=== PATIENT | female | born 1960 | race Caucasian/White ===

== ENCOUNTER 2021-02-07 11:14 | Observation (INO) ==
[2021-02-07] MEDS ORDERED: MoRPHine SULFATE 4 MG/ML 1 ML CARP\\VIAL IV STA ×2 (11:43→16:07)
[2021-02-07] MEDS ORDERED: ONDANSETRON INJ 2 MG/ML 2 ML VIAL IV STA (11:43)
--- NOTE | 2021-02-07 12:01 | Emergency Department Note ---
History of Present Illness General Chief complaint: Leg Injury/Pain Stated complaint: L LEG PAIN IN GROIN Time Seen by Provider: 02/07/21 11:36 History of Present Illness Maximum Pain Intensity: 7 This is a 60-year-old female that presents to the emergency department via private vehicle with complaints of "flank pain and groin". The patient notes that about 1 week ago she began with atraumatic left hip/left groin pain. She notes that the pain is also in the left lower quadrant and radiates down her left leg. No back pain. She had outpatient x-rays and notes that she has not been informed upon the results as of yet. She denies any known trauma or injury. She does feel some nausea and feels as though she has to vomit but has not. The patient in regard to today's visit denies any other pertinent past medical history, surgeries or allergies. Patient denies any lower extremity weakness, bowel or bladder incontinence, numbness or tingling genital region. No fevers, chills, chest pain or shortness of breath. Home Medications Medication Instructions Recorded Confirmed Type acetaminophen [Tylenol Extra 500 mg PO Q6H PRN 02/07/21 02/07/21 History Strength] albuterol sulfate [Ventolin HFA] 2 puff INHALATION QID PRN 02/07/21 02/07/21 History aspirin 81 mg PO Q2D 02/07/21 02/07/21 History buspirone 15 mg PO BID 02/07/21 02/07/21 History hydroxyzine HCl 10 mg PO HS 02/07/21 02/07/21 History montelukast 10 mg PO DAILY@1400 02/07/21 02/07/21 History pantoprazole 40 mg PO DAILY@1400 02/07/21 02/07/21 History prednisone 20 mg PO BID 02/07/21 02/07/21 History trazodone 50 mg PO HS PRN 02/07/21 02/07/21 History valsartan-hydrochlorothiazide 1 tab PO DAILY@1400 02/07/21 02/07/21 History Allergies Allergy/AdvReac Type Severity Reaction Status Date / Time No Known Allergies Allergy Unverified 02/07/21 12:18 Past Med/Surg History Medical History Allergic rhinitis Esophageal reflux HTN (hypertension) Hyperlipidemia Sinusitis Smoker Surgical History S/P colonoscopy Family History Father Coronary heart disease Social History Smoking Status: Current every day smoker Feels Safe at Home: Yes Review of Systems A total of 10 systems reviewed and were otherwise negative Physical Exam Vital Signs Vital Signs - 24 hr 02/07/21 11:22 02/07/21 12:29 02/07/21 14:00 Temperature 36.5 C Temperature Source Temporal Artery Scan Pulse Rate 96 H Pulse Rate [Right Finger] 84 65 Pulse Rhythm Regular Pulse Rhythm [Right Finger] Regular Regular Pulse Strength Normal Pulse Strength [Right Finger] Normal Normal Respiratory Rate 18 16 18 Respiratory Effort / Characteristics Non-Labored Spontaneous Non-Labored Spontaneous Non-Labored Spontaneous Respiratory Depth Normal Normal Normal Respiratory Pattern Regular Blood Pressure 131/71 Blood Pressure [Left Arm] 147/100 H 127/59 L Blood Pressure Mean 91 Blood Pressure Mean [Left Arm] 115 81 Blood Pressure Position Sitting Blood Pressure Position [Left Arm] Lying Pulse Oximetry 98 98 95 Oxygen Delivery Method Room Air Room Air Room Air Sepsis Recent Fever Within 48 Hours No Sepsis New/Unexplained Change in Mental Status N/A Sepsis Action Taken by Nursing No Action Required VITAL SIGNS - Vital signs and nursing notes were reviewed. Stable and afebrile. GENERAL -60-year-old female appearing her stated age who is in no acute distress. Communicates well with provider and answers questions appropriately. SKIN - Without rashes. No meningeal or petechial rash. HEAD - NC/AT. EYES - PERRL with EOMI bilaterally. Sclera anicteric. EARS - No deformities of external structures noted on gross examination bilaterally. NOSE - Midline and without cyanosis. No epistaxis or purulent drainage noted. MOUTH/OROPHARYNX - Without perioral cyanosis. NECK - Neck with FROM. No nuchal rigidity. LUNGS - Chest wall symmetric without accessory muscle use, intercostals retractions, or central cyanosis. Normal vesicular breath sounds CTA B/L. No wheezes, rales, or rhonchi appreciated. CARDIAC - RRR with S1/S2. No murmur, rubs, or gallops appreciated. ABDOMEN - Abdominal contour normal without pulsations or visible masses. BS normoactive all four quadrants. No tenderness, palpable masses, hepatosplenomegaly, or ascites noted. EXTREMITIES - No clubbing or peripheral cyanosis. No bony tenderness. No step- off or deformity. No neurovascular deficit. +5/5 strength noted in UE/LE bilaterally. NEUROLOGIC - Cranial nerves II through XII grossly intact. Sensory intact to light touch throughout. PSYCH - A&Ox3 and cooperates fully with examiner. Pt is very pleasant and interacts well with examiner. Course Administered Medications Discontinued Medications Sodium Chloride (Nss 1000ml) 1,000 mls @ 999 mls/hr IV .Q1H1M SHELBY Stop: 02/07/21 14:45 Last Admin: 02/07/21 14:03 Dose: 999 mls/hr Documented by: [id number] Ioversol (Ioversol 100ml) 94 ml IV ONCE ONE Stop: 02/07/21 13:25 Last Admin: 02/07/21 13:25 Dose: 94 ml Documented by: [id number] Morphine Sulfate (Morphine Sulfate 4 Mg/Ml 1 Ml Carp\\Vial) 4 mg IV NOW STA Stop: 02/07/21 11:44 Last Admin: 02/07/21 12:21 Dose: 4 mg Documented by: [id number] Morphine Sulfate (Morphine Sulfate 4 Mg/Ml 1 Ml Carp\\Vial) 4 mg IV NOW STA Stop: 02/07/21 16:08 Last Admin: 02/07/21 16:14 Dose: 4 mg Documented by: [id number] Ondansetron HCl (Ondansetron Inj 2 Mg/Ml 2 Ml Vial) 4 mg IV NOW STA Stop: 02/07/21 11:44 Last Admin: 02/07/21 12:20 Dose: 4 mg Documented by: [id number] Medical Decision Making Laboratory Data Result diagrams: 02/07/21 12:09 02/07/21 12:09 Lab Results 02/07/21 02/07/21 02/07/21 Range/Units 12:09 12:09 14:10 WBC 13.96 H (4.8-10.8) K/uL RBC 4.54 (4.2-5.4) M/uL Hgb 15.0 (12.0-16.0) g/dL Hct 41.2 (37-47) % MCV 90.7 (80-100) fL MCH 33.0 (25-34) pg MCHC 36.4 H (32-36) g/dL RDW Std Deviation 40.8 (36.4-46.3) fL RDW Coeff of Tita 12.3 (11.5-14.5) % Plt Count 419 H (130-400) K/uL MPV 9.9 (7.4-10.4) fL Immature Gran % (Auto) 0.2 % Neut % (Auto) 86.8 % Lymph % (Auto) 10.1 % [place] % (Auto) 2.7 % Eos % (Auto) 0.1 % Baso % (Auto) 0.1 % Neut # (Auto) 12.12 H (1.4-6.5) K/uL Lymph # (Auto) 1.41 (1.2-3.4) K/uL [place] # (Auto) 0.38 (0.11-0.59) K/uL Eos # (Auto) 0.01 (0-0.5) K/uL Baso # (Auto) 0.01 (0-0.2) K/uL Immature Gran # (Auto) 0.03 H (0.00-0.02) K/uL Sodium 119 L* (136-145) mmol/L Potassium 3.4 L (3.5-5.1) mmol/L Chloride 85 L (98-107) mmol/L Carbon Dioxide 26 (21-32) mmol/L Anion Gap 8.0 (3-11) BUN 14 (7-18) mg/dl Creatinine 0.81 (0.6-1.2) mg/dl Est Cr Clr Drug Dosing 68.6 ml/min Est GFR ( Amer) 90.2 Est GFR (Non-Af Amer) 77.8 BUN/Creatinine Ratio 17.4 (10-20) Glucose 296 H (70-99) mg/dl Calcium 8.8 (8.5-10.1) mg/dl Magnesium 2.2 (1.8-2.4) mg/dl Total Bilirubin 0.5 (0.2-1) mg/dl AST 9 L (15-37) U/L ALT 25 (12-78) U/L Alkaline Phosphatase 79 (45-117) U/L Total Protein 8.3 H (6.4-8.2) gm/dl Albumin 3.7 (3.4-5.0) gm/dl Globulin 4.6 H (2.5-4.0) gm/dl Albumin/Globulin Ratio 0.8 L (0.9-2) Lipase 122 (73-393) U/L COVID-19 Eval [facility] SARS-CoV-2, RNA, NAAT (NEGATIVE) 02/07/21 Range/Units 14:10 WBC (4.8-10.8) K/uL RBC (4.2-5.4) M/uL Hgb (12.0-16.0) g/dL Hct (37-47) % MCV (80-100) fL MCH (25-34) pg MCHC (32-36) g/dL RDW Std Deviation (36.4-46.3) fL RDW Coeff of Tita (11.5-14.5) % Plt Count (130-400) K/uL MPV (7.4-10.4) fL Immature Gran % (Auto) % Neut % (Auto) % Lymph % (Auto) % [place] % (Auto) % Eos % (Auto) % Baso % (Auto) % Neut # (Auto) (1.4-6.5) K/uL Lymph # (Auto) (1.2-3.4) K/uL [place] # (Auto) (0.11-0.59) K/uL Eos # (Auto) (0-0.5) K/uL Baso # (Auto) (0-0.2) K/uL Immature Gran # (Auto) (0.00-0.02) K/uL Sodium (136-145) mmol/L Potassium (3.5-5.1) mmol/L Chloride (98-107) mmol/L Carbon Dioxide (21-32) mmol/L Anion Gap (3-11) BUN (7-18) mg/dl Creatinine (0.6-1.2) mg/dl Est Cr Clr Drug Dosing ml/min Est GFR ( Amer) Est GFR (Non-Af Amer) BUN/Creatinine Ratio (10-20) Glucose (70-99) mg/dl Calcium (8.5-10.1) mg/dl Magnesium (1.8-2.4) mg/dl Total Bilirubin (0.2-1) mg/dl AST (15-37) U/L ALT (12-78) U/L Alkaline Phosphatase (45-117) U/L Total Protein (6.4-8.2) gm/dl Albumin (3.4-5.0) gm/dl Globulin (2.5-4.0) gm/dl Albumin/Globulin Ratio (0.9-2) Lipase (73-393) U/L COVID-19 Eval Order SARS-CoV-2, RNA, NAAT NEGATIVE (NEGATIVE) Imaging Data Radiologist's Impression: CT abd pelvis IV con only CLINICAL HISTORY: Left-sided abdominal pain radiating to the left leg. COMPARISON STUDY: None. TECHNIQUE: The patient was scanned in a dynamic helical fashion during intravenous administration of 94 cc of Optiray 320 A dose lowering technique w as utilized adhering to the principles of ALARA. CT DOSE: 560.31 mGy.cm FINDINGS: Lower chest: There are mild dependent atelectatic changes Liver: The contrast-enhanced liver is normal in size, contour, and attenuation. There is no intrahepatic biliary ductal dilatation. The hepatic veins and portal veins are patent. Gallbladder: Unremarkable. Spleen: Normal in size and attenuation. Pancreas: Unremarkable. Adrenal glands: There is minor low density left adrenal gland thickening Kidneys: There is symmetric renal cortical enhancement. The kidneys are normal in size without hydronephrosis. Bowel: There are no transition zones to indicate bowel obstruction. There is no evidence of acute diverticulitis. There is no evidence of acute appendicitis. Peritoneum: There is no intraperitoneal free air or abdominal ascites. Vasculature: There is no evidence of abdominal aortic aneurysm. There are aortoiliac atheromatous changes. Adenopathy: None. Pelvic viscera: The uterus appears surgically absent Skeletal structures: No destructive lesions are visualized. Degenerative changes are present within the lumbar spine with lumbar spinal stenosis. IMPRESSION: 1. No acute intra-abdominal or pelvic findings 2. No evidence of bowel obstruction. No evidence of free air 3. No acute inflammatory changes 4. No evidence of pathologic adenopathy ACT 112: Negative or not required by law. Electronically signed by: Fahad Rahman M.D. 02/07/2021 1:[address] lumbar spine wo con CT DOSE: CLINICAL HISTORY: Left-sided lower abdominal pain, down leg TECHNIQUE: Helical images were acquired in transverse plane. Reformatted sagittal and coronal images were reviewed. A dose lowering technique was utilized adhering to the principles of ALARA. CONTRAST: No contrast was administered COMPARISON STUDY: None. FINDINGS: L1-2 level: There is prominence of the paravertebral soft tissues which is likely secondary to a disc bulge. There is no significant spinal or foraminal stenosis. L2-3 level: There is a circumferential disc bulge with moderate spinal stenosis. There is no significant foraminal narrow L3-4 level: There is a circumferential disc bulge with moderate spinal stenosis. There is mild left-sided foraminal narrowing L4-5 level: There is a circumferential disc bulge with moderate spinal stenosis. There is mild bilateral foraminal narrowing L5-S1 level: There is a circumferential disc bulge. There is mild bilateral foraminal narrowing. There is minimal spinal canal narrowing. No fractures subluxations or destructive lesions are visualized IMPRESSION: Multilevel spondylytic changes with moderate multifactorial spinal stenosis at the L2-3, L3-4, and L4-5 levels. ACT 112: Negative or not required by law. Electronically signed by: Fahad Rahman M.D. 02/07/2021 1:40 PM MDM Narrative Patient was seen and evaluated as above in room C1. Review was performed of nursing notes and vital signs. I did review pertinent previous visits and patient history. After obtaining a thorough history and physical examination the above work up was performed. Patient presents to us today with atraumatic left lower quadrant/left hip/left leg pain x7 days. No back pain. No fevers or chills. She is nontoxic on examination. Options of care were discussed with the patient. There is leukocytosis 13.96 without significant anemia. There is significant hyponatremia at 119, no previous for comparison in the EMR. Potassium 3.4, chloride 85, glucose 296. Covid testing negative. CT scan was obtained the abdomen pelvis with recon of the L-spine. This was essentially negative for any emergent process however she does have some moderate multifocal spinal stenosis at L2-L3, L3-L4, and L4-L5. She was medicated here with IV pain medication, and 1 L of NSS. Given the significant hyponatremic believe that further evaluation and management is warranted in the inpatient setting. EKG reveals normal sinus rhythm at a rate of 68 bpm. No ectopy or ischemic change. QTc 461. QRS 68. While in the department, I personally reevaluated the patient several times and each time the patient was found to be resting comfortably. Please refer to further documentation regarding her stay. Case was discussed with the attending physician. In the evaluation and treatment of this patient the following differential raoul gnosis entertained: Fracture, dislocation, subluxation, cauda equina syndrome, AAA, diverticulitis, appendicitis, torsion, osteomyelitis, piriformis syndrome, strain, sprain, among others. Impression & Plan Hyponatremia, Leg pain Discharge Plan Visit Data Chief Complaint: Leg Injury/Pain Stated Complaint: L LEG PAIN IN GROIN ED Provider: Giovanny Robertson ED Midlevel Provider: Gage Calles Discharge Problem: Hyponatremia, Leg pain Forms Stand Alone Forms: [employer] [facility] [employer] Prescriptions Prescriptions: No Action trazodone 50 mg Tablet 50 mg PO HS PRN (Reason: Sleep) RF: 0 prednisone 20 mg tablet 20 mg PO BID RF: 0 aspirin 81 mg Tablet,Delayed Release (Dr/Ec) 81 mg PO Q2D RF: 0 acetaminophen [Tylenol Extra Strength] 500 mg Tablet 500 mg PO Q6H PRN (Reason: Pain) RF: 0 pantoprazole 40 mg tablet,delayed release (DR/EC) 40 mg PO DAILY@1400 RF: 0 montelukast 10 mg tablet 10 mg PO DAILY@1400 RF: 0 albuterol sulfate [Ventolin HFA] 90 mcg/actuation HFA aerosol inhaler 2 puff INHALATION QID PRN (Reason: Shortness Of Breath) RF: 0 hydroxyzine HCl 10 mg tablet 10 mg PO HS RF: 0 buspirone 15 mg tablet 15 mg PO BID RF: 0 valsartan-hydrochlorothiazide 160-25 mg tablet 1 tab PO DAILY@1400 RF: 0
[2021-02-07 12:28] LABS: Basophils # (auto) 0.01 K/uL (0-0.2); Basophils % (auto) 0.1 %; Eosinophils # (auto) 0.01 K/uL (0-0.5); Eosinophils % (auto) 0.1 %; Hematocrit (blood only) 41.2 % (37-47); Immature Granulocytes # (auto) 0.03 K/uL (0.00-0.02); Immature Granulocytes % (auto) 0.2 %; Lymphocytes # (auto) 1.41 K/uL (1.2-3.4); Lymphocytes % (auto) 10.1 %; Mean Corpuscular Hgb Conc 36.4 g/dL (32-36); Mean Corpuscular Volume 90.7 fL (80-100); Mean Platelet Volume 9.9 fL (7.4-10.4); Monocytes # (auto) 0.38 K/uL (0.11-0.59); Monocytes % (auto) 2.7 %; Neutrophils # (auto) 12.12 K/uL (1.4-6.5); Neutrophils % (auto) 86.8 %; Platelet Count 419 K/uL (130-400); RDW Coefficient of Variation 12.3 % (11.5-14.5); RDW Standard Deviation 40.8 fL (36.4-46.3); Red Blood Count 4.54 M/uL (4.2-5.4); White Blood Count 13.96 K/uL (4.8-10.8)
[2021-02-07 12:54] LABS: Albumin Globulin Ratio 0.8 (0.9-2); Albumin Level 3.7 gm/dl (3.4-5.0); BUN Creatinine Ratio 17.4 (10-20); Bilirubin,Total 0.5 mg/dl (0.2-1); Calcium 8.8 mg/dl (8.5-10.1); Creatinine Clr Calc Pharmacy 68.6 ml/min; Est GFR (African American) 90.2; Est GFR (Non-African American) 77.8; Globulin 4.6 gm/dl (2.5-4.0); Magnesium 2.2 mg/dl (1.8-2.4); Potassium 3.4 mmol/L (3.5-5.1); Total Protein 8.3 gm/dl (6.4-8.2)
[2021-02-07] MEDS ORDERED: OPTIRAY 320 100ml IV ONE (13:24)
--- NOTE | 2021-02-07 13:36 | CT Scan Report ---
CT abd pelvis IV con only CLINICAL HISTORY: Left-sided abdominal pain radiating to the left leg. COMPARISON STUDY: None. TECHNIQUE: The patient was scanned in a dynamic helical fashion during intravenous administration of 94 cc of Optiray 320 A dose lowering technique was utilized adhering to the principles of ALARA. CT DOSE: 560.31 mGy.cm FINDINGS: Lower chest: There are mild dependent atelectatic changes Liver: The contrast-enhanced liver is normal in size, contour, and attenuation. There is no intrahepa tic biliary ductal dilatation. The hepatic veins and portal veins are patent. Gallbladder: Unremarkable. Spleen: Normal in size and attenuation. Pancreas: Unremarkable. Adrenal glands: There is minor low density left adrenal gland thickening Kidneys: There is symmetric renal cortical enhancement. The kidneys are normal in size without hydron ephrosis. Bowel: There are no transition zones to indicate bowel obstruction. There is no evidence of acute div erticulitis. There is no evidence of acute appendicitis. Peritoneum: There is no intraperitoneal free air or abdominal ascites. Vasculature: There is no evidence of abdominal aortic aneurysm. There are aortoiliac atheromatous desmond nges. Adenopathy: None. Pelvic viscera: The uterus appears surgically absent Skeletal structures: No destructive lesions are visualized. Degenerative changes are present within t he lumbar spine with lumbar spinal stenosis. IMPRESSION: 1. No acute intra-abdominal or pelvic findings 2. No evidence of bowel obstruction. No evidence of free air 3. No acute inflammatory changes 4. No evidence of pathologic adenopathy ACT 112: Negative or not required by law. Electronically signed by: Fahad Rahman M.D. 02/07/2021 1:34 PM
--- NOTE | 2021-02-07 13:41 | CT Scan Report ---
CT lumbar spine wo con CT DOSE: CLINICAL HISTORY: Left-sided lower abdominal pain, down leg TECHNIQUE: Helical images were acquired in transverse plane. Reformatted sagittal and coronal images were reviewed. A dose lowering technique was utilized adhering to the principles of ALARA. CONTRAST: No contrast was administered COMPARISON STUDY: None. FINDINGS: L1-2 level: There is prominence of the paravertebral soft tissues which is likely secondary to a disc bulge. There is no significant spinal or foraminal stenosis. L2-3 level: There is a circumferential disc bulge with moderate spinal stenosis. There is no signific ant foraminal narrow L3-4 level: There is a circumferential disc bulge with moderate spinal stenosis. There is mild left-s ided foraminal narrowing L4-5 level: There is a circumferential disc bulge with moderate spinal stenosis. There is mild bilate ral foraminal narrowing L5-S1 level: There is a circumferential disc bulge. There is mild bilateral foraminal narrowing. Ther e is minimal spinal canal narrowing. No fractures subluxations or destructive lesions are visualized IMPRESSION: Multilevel spondylytic changes with moderate multifactorial spinal stenosis at the L2-3, L3-4, and L4-5 levels. ACT 112: Negative or not required by law. Electronically signed by: Fahad Rahman M.D. 02/07/2021 1:40 PM
[2021-02-07] MEDS ORDERED: SODIUM CHLORIDE 0.9% 1000ML 1,000 ML IV SCH ×2 (13:45→17:10)
[2021-02-07] MEDS ORDERED: MULTI-VITAMIN INFUSION 10 ML, THIAMINE HCL 100 MG, FOLIC ACID 1 MG in SODIUM CHLORIDE 0... IV ONE (13:47)
--- NOTE | 2021-02-07 14:41 | History & Physical Report ---
Date of Service February 07, 2021 Assessment & Plan (1) Leg pain: Constant, progressive and ongoing now for several days. She does have evidence of degenerative changes in the lumbar spine on CT but is really having no pain in the back, with pain more concentrated in the lower hip and thigh ar ea. PT/OT to evaluate, aggressive pain management for now and monitor. May need to consider further imaging with MRI of the L spine or imaging of the left hip. (2) Hyponatremia: Acute hyponatremia, although no baseline Na is in the outpatient records system recently. Urine studies and serum osm ordered. She received 1L bolus NSS in the ER and was treated with antiemetics and morphine for her pain and nausea successfully. Within about 6 hours her Na went from 119 to 130. She also reports that she hasn't been eating well lately and that she had some issues with loose stools recently, which also may have been contributing to dehydration. Notably she drinks excessively, and this can not only dehydrate her but contribute to poor nutrition. With the rapid increase in Na, D5 infusion was started and will trend Na again in 4 hours. Nephro consulted to assist with management. Goal 127 by tomorrow at noon. (3) HTN (hypertension): Currently hypotensive and hyponatremic, holding valsartan/HCTZ per home regimen. (4) Smoker: Encouraged to quit, however, still in contemplative phase. She declines nicotine replacement in the hospital at this time. (5) Alcohol use: Excessive alcohol use at risk for withdrawal. She will be placed on a CIWA protocol and started on daily thiamine and folate, first dose given today. (6) Hyperglycemia: She denies a h/o diabetes although has a glucose of 296 in the ER. She was notably on prednisone recently. Will screen her for DMII with A1C and will ordered fingerstick glucose with correction factor as needed. No further predn isone ordered at this time. (7) DVT prophylaxis: Lovenox Full Code Dispo-uncertain, pending improvement of patient's ability to ambulate and achieve good pain control. Nancy Perez DO [facility] Hospitalist History of Present Illness Chief Complaint: left thigh pain, cannot stand or walk Primary Care Provider: Vero Turner DO 60 yo F smoker who reportedly drinks 3-4 beers daily presents with one week of severe left upper thigh pain, nontraumatic. 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 She lives in a camper in [facility] and reports no issues with her sleeping arrangements which may have contributed to her pain. She has no h/o back or leg pain in the past and denies any trauma or surgery to this area. She is reporting a crampy pain at night that is severe in the thigh and a sharp stabbing pain that radiates from the medial groin area down the thigh on the front. There is no back pain or radiculopathy. She does report numbness in her lateral toes on the left side for the past week. She reports that her mother suffered a similar pain and had an abdominal aneurysm requiring surgeries. ROS reveals 6 weeks of once daily loose stools in the morning. She reports this has stopped and she hasn't had a BM in one week. She reports severe nausea without vomiting last Sunday for which she said she was going to come into the ER but this resolved prior to coming. She has had some relief of pain with the morphine and relief of nausea today with meds in the ER. Sodium was found to be 119. The patient is a lifelong smoker and is unwilling to quit at this time becuase of failed previous attempts and some ongoing anxiety issues. She otherwise denies chest pain, SOB, wheezing, fevers, chills, back pain, abdominal pain. She has a glucose of 296 but denies a h/o DMII. She was recently taking prednisone for back pain in the last week which wasn't much help in controlling the pain. Allergies Allergy/AdvReac Type Severity Reaction Status Date / Time No Known Allergies Allergy Unverified 02/07/21 12:18 Home Medications Medication Instructions Recorded Confirmed Type acetaminophen [Tylenol Extra 500 mg PO Q6H PRN 02/07/21 02/07/21 History Strength] albuterol sulfate [Ventolin HFA] 2 puff INHALATION QID PRN 02/07/21 02/07/21 History aspirin 81 mg PO Q2D 02/07/21 02/07/21 History buspirone 15 mg PO BID 02/07/21 02/07/21 History hydroxyzine HCl 20 mg PO HS 02/07/21 02/07/21 History montelukast 10 mg PO DAILY@1400 02/07/21 02/07/21 History pantoprazole 40 mg PO DAILY@1400 02/07/21 02/07/21 History prednisone 20 mg PO BID 02/07/21 02/07/21 History trazodone 50 mg PO HS PRN 02/07/21 02/07/21 History valsartan-hydrochlorothiazide 1 tab PO DAILY@1400 02/07/21 02/07/21 History Past Med/Surg History Medical History Allergic rhinitis Esophageal reflux HTN (hypertension) Hyperlipidemia Sinusitis Smoker Surgical History S/P colonoscopy Family History Father Coronary heart disease Social History Smoking Status: Current every day smoker Cigarettes Per Day: 20-40; Hx Alcohol Use: Yes Alcohol type: beer Hx Substance Use: No Preferred Language: Persian Communication Ability: Effective 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 Smells of cigarette smoke. EYES: PERRL, normal conjunctivae, no scleral icterus ENT: external ear and nose normal, oropharynx clear, partial dentures in place. MMM RESPIRATORY: clear to auscultation bilaterally, no crackles, rales or wheezes, normal respiratory effort CARDIOVASCULAR: regular rate and rhythm, S1 and 2 heard without murmurs, gallops or rubs, no JVD, no peripheral edema CHEST: inspection of chest was normal GASTROINTESTINAL: soft, mild TTP in LLQ, nondistended, no guarding. MUSCULOSKELETAL: strength 5/5 throughout except some difficulty with dorsifle xion of the left foot, gait not assessed 2/2 severe pain. head is normocephalic and atraumatic SKIN: warm and dry NEUROLOGIC: patellar DTRs 2+ bilat. No facial palsy, no dysarthria. Touch, pain and proprioception normal. CN 2-12 grossly intact, no sensory deficit, normal cognition, normal speech PSYCHIATRIC: alert cooperative and oriented to person, place and time. Results & Data Results & Data ([place]) Vital Signs (Past 12 Hours) Vital Signs Temp Pulse Pulse Resp BP BP Pulse Ox 02/07/21 14:00 65 18 127/59 L 95 02/07/21 12:29 84 16 147/100 H 98 02/07/21 11:22 36.5 C 96 H 18 131/71 98 Laboratory Results Short CBC 02/07/21 Range/Units 12:09 WBC 13.96 H (4.8-10.8) K/uL Hgb 15.0 (12.0-16.0) g/dL Hct 41.2 (37-47) % Plt Count 419 H (130-400) K/uL BMP 02/07/21 12:09 Sodium 119 L* Potassium 3.4 L Chloride 85 L Carbon Dioxide 26 BUN 14 Creatinine 0.81 Glucose 296 H Calcium 8.8 Liver Function 02/07/21 Range/Units 12:09 Total Bilirubin 0.5 (0.2-1) mg/dl AST 9 L (15-37) U/L ALT 25 (12-78) U/L Alkaline Phosphatase 79 (45-117) U/L Albumin 3.7 (3.4-5.0) gm/dl
[2021-02-07] MEDS ORDERED: traZODone HCL 50 MG TAB PO PRN (15:33)
[2021-02-07] MEDS ORDERED: ALBUTEROL HFA 8 GM INHALER INH PRN (15:33)
[2021-02-07] MEDS ORDERED: GLUCOSE 40% GEL 15 GM TUBE PO PRN (17:10)
[2021-02-07] MEDS ORDERED: CARBOHYDRATES FOR HYPOGLYCEMIA PO PRN (17:10)
[2021-02-07] MEDS ORDERED: GLUCAGON FOR INJ 1 MG VIAL SQ PRN (17:10)
[2021-02-07] MEDS ORDERED: GLUCOSE 10 TABS/TUBE PO PRN (17:10)
[2021-02-07] MEDS ORDERED: LORazepam 1 MG TAB PO PRN (17:10)
[2021-02-07] MEDS ORDERED: DEXTROSE 50% 50 ML SYRINGE IV PRN (17:10)
[2021-02-07] MEDS ORDERED: ONDANSETRON INJ 2 MG/ML 2 ML VIAL IV PRN (17:10)
[2021-02-07] MEDS: INSULIN ASPART 100 UNITS/ML 3 ML PEN SC SCH ×2 (17:39→20:51)
[2021-02-07] MEDS ORDERED: THIAMINE HCL 100 MG in SYRINGE 9 ML IV ONE (18:00)
[2021-02-07 18:14] LABS: BUN Creatinine Ratio 20.1 (10-20); Calcium 8.4 mg/dl (8.5-10.1); Creatinine Clr Calc Pharmacy 84.2 ml/min; Est GFR (African American) 109.7; Est GFR (Non-African American) 94.7; Potassium 3.7 mmol/L (3.5-5.1)
[2021-02-07] MEDS: FOLIC ACID 1 MG TAB PO SCH (18:25)
[2021-02-07] MEDS: THIAMINE HCL 100 MG TAB PO SCH (18:25)
[2021-02-07] MEDS: ACETAMINOPHEN 325 MG TAB PO PRN (18:30)
[2021-02-07] MEDS ORDERED: DEXTROSE 5% 1,000 ML IV SCH (19:45)
[2021-02-07] MEDS: busPIRone 15 MG TAB PO SCH (19:50)
[2021-02-07] MEDS ORDERED: hydrOXYzine HCl 10 MG TAB PO SCH (21:00)
[2021-02-07] MEDS: hydrOXYzine HCl 10 MG TAB PO SCH (21:21)
[2021-02-08] MEDS ORDERED: DEXTROSE 5% 1,000 ML IV ONE (00:57)
[2021-02-08] MEDS: ACETAMINOPHEN 325 MG TAB PO PRN ×2 (01:44→07:03)
[2021-02-08 02:06] LABS: Appearance Urine Clear (Clear); Bacteria Urine Automated Negative (Negative); Bilirubin Urine Negative (Negative); Blood Urine Negative (Negative); Color Urine Yellow; Epithelial Cell Urine Auto >30 /lpf (0-5); Glucose Urine UA Trace (Negative); Ketones Urine Negative (Negative); Leukocyte Esterase Urine 2+ (Negative); Nitrite Urine Negative (Negative); Protein Urine Negative (Negative); RBC Urine Automated 0-4 /hpf (0-4); Specific Gravity Urine 1.027 (1.000-1.030); Urobilinogen Urine Negative (Negative); WBC Urine Automated >30 /hpf (0-5)
[2021-02-08 02:10] LABS: Calcium 8.1 mg/dl (8.5-10.1); Creatinine Clr Calc Pharmacy 91.1 ml/min; Est GFR (African American) 112.6; Est GFR (Non-African American) 97.2; Potassium 3.5 mmol/L (3.5-5.1)
[2021-02-08 02:21] LABS: Amphetamines+Metham, Urine Neg (Neg); Barbiturates, Urine Neg (Neg); Benzodiazepine, Urine Neg (Neg); Cocaine, Urine Neg (Neg); Creatinine Urine Random 74.1 mg/dl; MDMA (Ecstacy), Urine Neg (Neg); Methadone, Urine Neg (Neg); Opiate, Urine Pos (Neg); Phencyclidine, Urine Neg (Neg)
--- NOTE | 2021-02-08 06:45 | Electrocardiogram Report ---
Test Reason : Blood Pressure : / mmHG Vent. Rate : 068 BPM Atrial Rate : 068 BPM P-R Int : 186 ms QRS Dur : 068 ms QT Int : 434 ms P-R-T Axes : 075 063 085 degrees QTc Int : 461 ms Normal sinus rhythm Possible Left atrial enlargement Nonspecific T wave abnormality No previous ECGs available Confirmed by Wade Magallanes ([id number]) on 02/08/2021 6:45:39 AM Referred By: Vero Turner Confirmed By:Wade Magallanes
[2021-02-08] MEDS: oxyCODONE HCL IR 5 MG TAB (IMMEDIATE RELEASE) PO PRN ×3 (07:13→16:11)
[2021-02-08 07:45] LABS: Hematocrit (blood only) 38.1 % (37-47); Hemoglobin 13.6 g/dL (12.0-16.0); Mean Corpuscular Hemoglobin 33.1 pg (25-34); Mean Corpuscular Hgb Conc 35.7 g/dL (32-36); Mean Corpuscular Volume 92.7 fL (80-100); Mean Platelet Volume 9.5 fL (7.4-10.4); Platelet Count 385 K/uL (130-400); RDW Coefficient of Variation 12.5 % (11.5-14.5); RDW Standard Deviation 42.5 fL (36.4-46.3); Red Blood Count 4.11 M/uL (4.2-5.4); White Blood Count 8.28 K/uL (4.8-10.8)
[2021-02-08 08:06] LABS: BUN Creatinine Ratio 19.6 (10-20); Creatinine Clr Calc Pharmacy 89.6 ml/min; Est GFR (Non-African American) 96.6; Magnesium 2.1 mg/dl (1.8-2.4); Potassium 3.2 mmol/L (3.5-5.1)
[2021-02-08] MEDS: ENOXAPARIN INJ 40 MG/0.4 ML SYR SQ SCH (08:52)
[2021-02-08] MEDS: THIAMINE HCL 100 MG TAB PO SCH (08:53)
[2021-02-08] MEDS: busPIRone 15 MG TAB PO SCH ×2 (08:53→20:40)
[2021-02-08] MEDS: INSULIN ASPART 100 UNITS/ML 3 ML PEN SC SCH ×4 (08:55→21:48)
[2021-02-08] MEDS: FOLIC ACID 1 MG TAB PO SCH (08:55)
[2021-02-08] MEDS: ASPIRIN 81 MG ECTAB PO SCH (08:55)
[2021-02-08 09:26] LABS: Estimated Average Glucose 114 mg/dl; Hemoglobin A1C 5.6 % (4.5-5.6)
--- NOTE | 2021-02-08 11:19 | Consultation Report ---
DATE OF CONSULTATION: 02/08/2021 REASON FOR CONSULT: Hyponatremia. HISTORY OF PRESENT ILLNESS: The patient is a 60-year-old female who does not have recent outpatient labs. She presented to the hospital yesterday because of severe pain in her leg for many days associated with some nausea. Laboratory tests done in the Emergency Department was significant for severe acute hyponatremia with a serum sodium of 119. We do not have baseline serum sodium to compare. In the Emergency Department, she was given normal saline and with that serum sodium went up really fast from 119-130. Since then, she has received D5 water and with that serum sodium has gone down a little bit to 127 most recently. She is still complaining of pain, but it is somewhat less. Vital signs are otherwise stable. Urine osmolality was done and it was inappropriately high at 400 range. She does drink 3-4 beers every day and she is a lifelong smoker unwilling to quit at this time. She denies any nausea, vomiting, chest pain, shortness of breath, orthopnea, PND, lower extremity edema, or any other symptoms. She had a blood glucose of 296, but denies history of diabetes. She was also taking some prednisone for the pain for the last 1 week without much help. ALLERGIES: None. HOME MEDICATIONS: List was reviewed in detail and also includes HYDROCHLOROTHIAZIDE. PAST MEDICAL AND SURGICAL HISTORY: Hypertension, hyperlipidemia, GERD, depression, esophageal reflux, colonoscopy. FAMILY HISTORY: Negative for renal disease or dialysis. SOCIAL HISTORY: Current every day smoker, every day alcohol drinker. She lives in home. She is single. REVIEW OF SYSTEMS: As detailed in HPI and listed otherwise, 12 systems reviewed and negative. FAMILY HISTORY: Negative for renal disease. PHYSICAL EXAMINATION: GENERAL: Middle-aged white female who is awake, alert, oriented x3. She is not in any respiratory distress at this time, able to give a detailed history and account of her problem. VITAL SIGNS: Blood pressure 151/79, pulse 66, temperature 36.3, 99% on room air. HEENT: Mucous membranes moist. NECK: Supple. No jugular venous distention. CHEST: Bilateral occasional wheezing. CARDIOVASCULAR: S1, S2 regular. ABDOMEN: Soft, nontender. EXTREMITIES: Shows no edema. NEUROLOGIC: Awake, alert, oriented x3. LABORATORY TESTS: Reviewed in detail. Serum sodium was 119 at the time of admission which went up to 130 and then most recently is 127, potassium is 3.2. Urine test showed urine osmolality of 402. Urine sodium was 5. She had abdomen and pelvis CT scan yesterday, which did not show any abnormality in the kidneys. ASSESSMENT AND PLAN: A 60-year-old female with no prior history of hyponatremia, admitted with severe hyponatremia in the setting of severe leg pain, nausea, a few days' duration. Hyponatremia. This is hard to pinpoint as far as etiology is concerned as there is multifactorial etiology. She was on hydrochlorothiazide, but then the urine sodium is very low, signifying volume depletion. Urine osmolality is inappropriately high at 400. Given this, it is probably a combination of excessive beer drinking, hydrochlorothiazide, volume depletion as well as some component of syndrome of inappropriate antidiuretic hormone secretion. We do not have any recent outpatient labs to compare with. In any case serum sodium improved very promptly and in fact faster than we like. RECOMMENDATIONS: For now, continue with D5 water and stop after the next blood work. After that, we can continue normal saline if she still needs IV fluid. Continue BMP every 8 hours.
--- NOTE | 2021-02-08 12:48 | Hospitalist Progress Note ---
Date of Service February 08, 2021 Assessment & Plan (1) Leg pain: Patient reports she has been having left hip pain radiating to the left anterior thigh for the past 1 week. Denies any recent trauma. Describes the pain as sharp in nature, 9 out of 10. She has difficulty putting weight on the left lower extremity bar x-ray was obtained in the ED which revealed Multilevel spondylytic changes with moderate multifactorial spinal stenosis at the L2-3, L3-4, and L4-5 levels. Continue oxycodone as needed for pain control. The fact patient is having significant pain and unable to bear weight, will treat with obtaining MRI of the left hip and lumbar spine. Work with PT/OT when stable. (2) Hyponatremia: Multifactorial in nature in the setting of hydrochlorothiazide use, beer potomania or possibly volumue depletion. Appreciate nephrology input. In 119 on admission followed by 130 this morning and 127 today. Continue with D5W. Continue to monitor BMP every 8 hours. Hypokalemia - repleted (3) HTN (hypertension): Continue holding valsartan/HCTZ per home regimen. (4) Smoker: Active smoker. (5) Alcohol use: Patient drinks 3-5 beers daily.currently remains on CIWA protocol. (6) Hyperglycemia: She denies a h/o diabetes although has a glucose of 296 in the ER. She was notably on prednisone recently. Hemoglobin A1c is pending. E. (7) DVT prophylaxis: Lovenox Full Code Admission and Anticipated Discharge Date Admission Date: February 07, 2021 Subjective Doing okay this morning. Reports her primary complaint is the pain in the left hip. Reports she is unable to bear any weight. Denies any chest pain or shortness of breath. Denies any abdominal pain, diarrhea or dysuria. Other review of systems negative. Review of Systems Review of Systems: All systems reviewed & are unremarkable except as noted in HPI & below Physical Exam Physical Exam: General: A&Ox3 HENT: NCAT, MMM, EOMI Eyes: PERRLA Neck: Supple, normal range of motion CVS: normal rate and rhythm Resp: b/l good breath sounds Abdomen: Soft, ND/NT Extremities: No c/c/e Neuro: face symmetric, strength grossly equal, no focal deficit Skin: no rashes/lesions/errythema MSK: no joint swelling/erythema Results & Data Results & Data ([facility]) Vital Signs (Past 12 Hours) Vital Signs Temp Pulse Pulse Resp BP Pulse Ox 02/08/21 11:00 36.5 C 78 18 112/62 78 L 02/08/21 07:40 66 02/08/21 07:00 36.3 C L 69 18 151/79 H 99 02/08/21 02:58 36.6 C 64 18 129/69 96 02/08/21 01:28 64
[2021-02-08] MEDS: PANTOprazole 40 MG TAB PO SCH (13:00)
[2021-02-08] MEDS: MONTELUKAST SODIUM 10 MG TABLET PO SCH (13:00)
[2021-02-08] MEDS ORDERED: POTASSIUM CHLORIDE CRTAB 20 MEQ TABCR PO STA (13:05)
[2021-02-08 13:57] LABS: BUN Creatinine Ratio 22.2 (10-20); Calcium 8.2 mg/dl (8.5-10.1); Creatinine Clr Calc Pharmacy 68.6 ml/min; Est GFR (African American) 90.2; Est GFR (Non-African American) 77.8; Potassium 3.3 mmol/L (3.5-5.1)
[2021-02-08] MEDS ORDERED: hydroCHLOROthiazide 25 MG TAB PO SCH (14:00)
[2021-02-08] MEDS ORDERED: VALSARTAN 80 MG TAB PO SCH (14:00)
[2021-02-08] MEDS ORDERED: HYDROmorphone INJ 0.5 MG/0.5 ML SYR IV STA (17:49)
[2021-02-08] MEDS ORDERED: bisacodyL 10 MG SUPP PR STA (18:02)
[2021-02-08] MEDS: POLYETHYLENE (MIRALAX) 17 GM PACK PO PRN (18:14)
[2021-02-08] MEDS ORDERED: HYDROmorphone INJ 0.5 MG/0.5 ML SYR ONE (20:08)
[2021-02-08] MEDS: hydrOXYzine HCl 10 MG TAB PO SCH (20:39)
[2021-02-08] MEDS ORDERED: MoRPHine SULFATE 4 MG/ML 1 ML CARP\\VIAL IV PRN (20:40)
[2021-02-08 21:22] LABS: BUN Creatinine Ratio 26.4 (10-20); Calcium 8.9 mg/dl (8.5-10.1); Creatinine Clr Calc Pharmacy 79.4 ml/min; Est GFR (African American) 107.6; Est GFR (Non-African American) 92.9; Potassium 3.6 mmol/L (3.5-5.1)
[2021-02-09] MEDS: oxyCODONE HCL IR 5 MG TAB (IMMEDIATE RELEASE) PO PRN ×4 (02:28→19:15)
[2021-02-09 06:21] LABS: BUN Creatinine Ratio 32.1 (10-20); Calcium 8.2 mg/dl (8.5-10.1); Creatinine Clr Calc Pharmacy 121.1 ml/min; Est GFR (African American) 124.5; Est GFR (Non-African American) 107.4; Potassium 3.8 mmol/L (3.5-5.1)
--- NOTE | 2021-02-09 08:04 | Magnetic Resonance Report ---
MR lumbar spine wo con CLINICAL HISTORY: Back pain with left leg radiculopathy TECHNIQUE: Sagittal and axial T1, T2 and STIR images were obtained. COMPARISON STUDY: CT scan dated 02/07/2021 OBSERVATIONS: The study was ordered without and with contrast. The patient was in too much pain to complete the pos tcontrast images. The study is significantly degraded due to motion artifact The vertebral bodies and posterior elements appear intact. There is no abnormal bony signal present t o suggest a marrow replacement process. L1-2: There is a circumferential disc bulge. There is mild spinal canal narrowing. There is no signif icant foraminal narrowing L2-3: There is a circumferential disc bulge with mild to moderate spinal stenosis. There is mild left -sided foraminal narrowing L3-4: There is a circumferential disc bulge with mild to moderate spinal stenosis. There is moderate to severe left-sided foraminal narrowing L4-5: There is a circumferential disc bulge with moderate spinal stenosis. There is moderate to sever e left-sided foraminal narrowing L5-S1: There is a mild circumferential disc bulge. There is no significant spinal or foraminal stenos is. The conus medullaris and cauda equina appear normal. IMPRESSION: 1. Significantly limited study from a technical standpoint secondary to motion artifact 2. No evidence of suspicious marrow replacement 3. Multilevel spondylytic changes with mild spinal stenosis the L1-2 level, mild to moderate spinal s tenosis at the L2-3 and L3-4 levels, and moderate spinal stenosis at the L4-5 level. 4. Mild left-sided foraminal narrowing at the L2-3 level, moderate to severe left-sided foraminal mila rowing at the L3-4 and L4-5 levels. ACT 112: Negative or not required by law. Electronically signed by: Fahad Rahman M.D. 02/09/2021 8:03 AM
[2021-02-09] MEDS: FOLIC ACID 1 MG TAB PO SCH (08:35)
[2021-02-09] MEDS: INSULIN ASPART 100 UNITS/ML 3 ML PEN SC SCH ×4 (08:35→20:30)
[2021-02-09] MEDS: THIAMINE HCL 100 MG TAB PO SCH (08:36)
[2021-02-09] MEDS: busPIRone 15 MG TAB PO SCH ×2 (08:37→20:28)
[2021-02-09] MEDS: ENOXAPARIN INJ 40 MG/0.4 ML SYR SQ SCH (08:37)
[2021-02-09] MEDS: POLYETHYLENE (MIRALAX) 17 GM PACK PO PRN (08:42)
[2021-02-09] MEDS ORDERED: VALSARTAN 80 MG TAB PO SCH ×2 (09:00)
[2021-02-09] MEDS ORDERED: VALSARTAN 80 MG TAB PO ONE (09:30)
[2021-02-09] MEDS ORDERED: SODIUM CHLORIDE 0.9% 500 ML IV SCH (09:30)
[2021-02-09] MEDS: SODIUM CHLORIDE 0.9% 1000ML 1,000 ML IV SCH ×2 (10:01→20:34)
--- NOTE | 2021-02-09 10:09 | Progress Notes ---
DATE: 02/09/2021 NEPHROLOGY PROGRESS NOTE SUBJECTIVE: Overnight, no new issues. Blood pressure is starting to run high. Serum sodium is improving, but still low. OBJECTIVE: VITAL SIGNS: Blood pressure 183/77, pulse rate 72, temperature 36.5, 96% on room air. HEENT: Mucous membranes moist. NECK: Supple. No jugular venous distention. CHEST: Bilaterally clear to auscultation. CARDIOVASCULAR: S1, S2 regular. ABDOMEN: Soft, nontender. EXTREMITIES: Show no edema. LABORATORY TEST: From this morning shows serum sodium up to 131. ASSESSMENT AND PLAN: A 60-year-old female admitted with severe hyponatremia in the setting of severe leg pain and nausea of a few days' duration. Hyponatremia: This is multifactorial in etiology including hydrochlorothiazide, volume depletion as well as some component of syndrome of inappropriate antidiuretic hormone secretion as well as excessive beer drinking. RECOMMENDATIONS: 1. STOP HYDROCHLOROTHIAZIDE FOREVER AND LIST ALLERGY. 2. Increase valsartan dose to 320 daily. 3. Normal saline at 80 mL per hour to increase the serum sodium. 4. At this point, BMP can be done once daily. 5. Alcohol withdrawal measures.
[2021-02-09] MEDS: LIDOCAINE 5% 1 PATCH TD SCH ×2 (10:26→20:31)
--- NOTE | 2021-02-09 11:12 | Hospitalist Progress Note ---
Date of Service February 09, 2021 Assessment & Plan (1) Leg pain: Patient reports she has been having left hip pain radiating to the left anterior thigh for the past 1 week. Denied trauma. Pain reported to be initially sharp and now crampy radiating to left thigh and lower leg. Denies any recent trauma. No fractures noted on imaging Lumbar spine MRI, 2 significantly limited, showed multilevel spondylitic changes with mild to moderate spinal stenosis at L2-3 and L3-4 and moderate spinal stenosis at L4-5, mild left-sided foraminal narrowing at L2-3, moderate to severe left-sided foraminal narrowing at L3-4 and L4-5 Lumbar radiculopathy Will likely be managed medically for now However, will get PT/OT evaluation as well as orthopedic evaluation especially with reported difficulty ambulating Pain control with oxycodone and lidocaine patch Discontinue morphine. (2) Hyponatremia: Multifactorial in nature in the setting of hydrochlorothiazide use, beer potomania or possibly volumue depletion. Director Of Student Services on board. Hydrochlorothiazide discontinued and should not be resumed even on discharge Resume valsartan with blood pressure running high. Discussed with potato chip fryer. Give normal saline today monitor sodium levels. Sodium is 131 this morning Hypokalemia - repleted (3) HTN (hypertension): Blood pressure poorly controlled Valsartan started at higher dose of 320 mg daily after discussion with potato chip fryer. Monitor (4) Smoker: Active smoker. Patient reports smoking 1.5 packs/day for 50 years. Counseled extensively regarding smoking cessation. (5) Alcohol use: Patient drinks 3-5 beers daily. Continue thiamine and folate and CIWA protocol. Counseled extensively about alcohol use (6) Hyperglycemia: She denies a h/o diabetes although has a glucose of 296 in the ER. She was notably on prednisone recently. Hemoglobin A1c is 5.6 (7) DVT prophylaxis: Lovenox Full Code Admission and Anticipated Discharge Date Admission Date: February 07, 2021 Subjective Patient seen and examined. Reports pain in the left thigh, described this initially sharp but now crampy, radiating down the inner thigh to the left leg, associated with some numbness some difficulty walking. Reports constipation is resolved. Denies nausea, vomiting Denies chest pain, shortness of breath, palpitations. Reports mild occasional chronic cough. Denies urinary or bowel incontinence Physical Exam Constitutional: + well hydrated; no acute distress Eyes: PERRL, conjunctivae normal, anicteric sclerae ENMT: external ear and nose normal, oropharynx normal Respiratory: normal respiratory effort, lungs clear to auscultation Cardiovascular: Rate/Rhythm: regular rate and regular rhythm S1-S2, no pedal edema Gastrointestinal (Abdomen): normal bowel sounds, soft, nontender, no hepatosplenomegaly Musculoskeletal: Power is 4+ in left lower extremity and 5 in right Reports mild numbness when assessing sensation on left thigh Neurologic: PERRL, EOMI, accommodation nl, no face palsy, no dysarthria Psychiatric: A+Ox3, euthymic affect Results & Data Results & Data ([facility]) Vital Signs (Past 12 Hours) Vital Signs Temp Pulse Pulse Resp BP Pulse Ox 02/09/21 10:27 177/83 H 02/09/21 07:00 36.5 C 72 18 183/77 H 96 02/09/21 04:40 150/72 H 02/09/21 04:16 36.6 C 72 20 190/76 H 95 02/09/21 00:00 78 02/08/21 23:50 36.8 C 66 20 156/71 H 95 Laboratory Results Laboratory Results - last 24 hr 02/08/21 02/08/21 02/08/21 11:33 13:06 13:06 Sodium 129 L Potassium 3.3 L Chloride 96 L Carbon Dioxide 26 Anion Gap 7.0 BUN 18 Creatinine 0.81 Est Cr Clr Drug Dosing 68.6 Est GFR ( Amer) 90.2 Est GFR (Non-Af Amer) 77.8 BUN/Creatinine Ratio 22.2 H Glucose 127 H POC Glucose 214 H Osmolality 273 L Calcium 8.2 L 02/08/21 02/08/21 02/08/21 17:41 20:38 20:51 Sodium 129 L Potassium 3.6 Chloride 97 L Carbon Dioxide 26 Anion Gap 6.0 BUN 18 Creatinine 0.70 Est Cr Clr Drug Dosing 79.4 Est GFR ( Amer) 107.6 Est GFR (Non-Af Amer) 92.9 BUN/Creatinine Ratio 26.4 H Glucose 116 H POC Glucose 133 H 115 H Osmolality Calcium 8.9 02/09/21 02/09/21 05:19 07:30 Sodium 131 L Potassium 3.8 Chloride 100 Carbon Dioxide 27 Anion Gap 4.0 BUN 14 Creatinine 0.45 L Est Cr Clr Drug Dosing 121.1 Est GFR ( Amer) 124.5 Est GFR (Non-Af Amer) 107.4 BUN/Creatinine Ratio 32.1 H Glucose 114 H POC Glucose 127 H Osmolality Calcium 8.2 L
--- NOTE | 2021-02-09 13:28 | Consultation ---
Date of Consultation . February 09, 2021 Assessment & Plan (1) Leg pain: Pts pain is most likely from acute far lateral disc herniation at L4-5 on LEFT. This is consistent with her pain pattern. Options have been reviewed with the patient. Dr. Avila has reviewed imaging. Options include 1)conservative treatment in the for of PT and pain control 2) PAIN MANAGEMENT for injection 3) surgery. Pt is adamant that she would like to avoid surgery at this point. She is quite anxious to return home as soon as posssible. She would like to try injections first. Will consult [facility] pain management in hopes of seeing her and scheduling as an outpatient for injection. We would like to follow her up in our office in 1-2 weeks to assess her response to injection. She understands to call sooner if she is declining. [phone] Supervising Physician Co-Signing Physician Notes Dr. Slim Avila History of Present Illness This is a pleasant 60yo female that we have been asked to see in consultation regarding her lumbar spine. She states pain in her left lower extremity started 9 days ago without precipitating accident, trauma, or fall. Pain progressively worsened over the next few days. She saw her new PCP last week. Hip xrays were ordered/performed. Pain was so severe two days ago that she cam to the ED where she was admitted. Pain is 100% Left lower extremity. It involves Left hip, groin, anterior, medial thigh and occasionally down the anterior champagne. Denies bowel/bladder changes. Ambulates independently, She has the most pain when weight bearing. Attending Physician: Chantelle Stock MD Allergies Allergy/AdvReac Type Severity Reaction Status Date / Time No Known Allergies Allergy Unverified 02/07/21 12:18 Home Medications Medication Instructions Recorded Confirmed Type acetaminophen [Tylenol Extra 500 mg PO Q6H PRN 02/07/21 02/07/21 History Strength] albuterol sulfate [Ventolin HFA] 2 puff INHALATION QID PRN 02/07/21 02/07/21 History aspirin 81 mg PO Q2D 02/07/21 02/07/21 History buspirone 15 mg PO BID 02/07/21 02/07/21 History hydroxyzine HCl 20 mg PO HS 02/07/21 02/07/21 History montelukast 10 mg PO DAILY@1400 02/07/21 02/07/21 History pantoprazole 40 mg PO DAILY@1400 02/07/21 02/07/21 History prednisone 20 mg PO BID 02/07/21 02/07/21 History trazodone 50 mg PO HS PRN 02/07/21 02/07/21 History valsartan-hydrochlorothiazide 1 tab PO DAILY@1400 02/07/21 02/07/21 History Patient History Medical History Allergic rhinitis Esophageal reflux HTN (hypertension) Hyperlipidemia Sinusitis Smoker Surgical History S/P colonoscopy Family History Father Coronary heart disease Social History Smoking Status: Current every day smoker Cigarettes Per Day: 20-40; Second Hand Exposure: Yes; Do You Dip or Chew Tobacco: No; Hx Alcohol Use: Yes Alcohol type: beer Hx Substance Use: No Preferred Language: Grenadian Communication Ability: Effective Segment Producer Required: No Beliefs That Will Affect Care: None Current Living Situation: Alone Other Information That Helps Us Care for You: No Feels Safe at Home: Yes Safety Concerns: Feels Safe At This Time Assistive Devices: Cane and Glasses Review of Systems Review of Systems: All systems reviewed & are unremarkable except as noted in HPI & below Physical Exam Physical Exam: She lies in bed with Left leg flexed to her chest. No acute distress. Nontender to palpation across lumbar spine. 4+/5 left EHL, dorsiflexion, quadricep. 5/5 strength Right lower extremity + straight leg raise LLE. negative contralateral SLR calves soft and nontender b/l -logrolling b/l Results & Data ([facility]) Vital Signs (Past 12 Hours) Vital Signs Temp Pulse Pulse Resp BP Pulse Ox 02/09/21 12:06 66 02/09/21 11:47 36.8 C 78 18 169/80 H 97 02/09/21 11:00 36.8 C 78 18 169/80 H 97 02/09/21 10:27 177/83 H 02/09/21 07:00 36.5 C 72 18 183/77 H 96 02/09/21 04:40 150/72 H 02/09/21 04:16 36.6 C 72 20 190/76 H 95 Diagnostic Findings [facility], [phone] Magnetic Resonance Report Patient: YAW LEVINE Date: 02/07/21MR#: [id number]: 2024 [place] RDAcct ID:[id number]: SITE 38Birth Date: 1960[facility] Zip: [place] [address]Rqh: 60Location: 2NSex: FRoom/Bed: [id number] Phy: Chantelle Stock I., MDDiagnosis: ACUTE HYPONATREMIA, LEG PAINPri Phy: Vero Turner, DOService Date: 02/08/21Fam Phy:Interpreting Phy: [facility]man [facility]: Nancy Perez DO Ordering Phy: Jolanta Landaverde MD cc: ~ MR lumbar spine wo con CLINICAL HISTORY: Back pain with left leg radiculopathy TECHNIQUE: Sagittal and axial T1, T2 and STIR images were obtained. COMPARISON STUDY: CT scan dated 02/07/2021 OBSERVATIONS: The study was ordered without and with contrast. The patient was in too much pain to complete the postcontrast images. The study is significantly degraded due to motion artifact The vertebral bodies and posterior elements appear intact. There is no abnormal bony signal present to suggest a marrow replacement process. L1-2: There is a circumferential disc bulge. There is mild spinal canal narrowing. There is no significant foraminal narrowing L2-3: There is a circumferential disc bulge with mild to moderate spinal stenosis. There is mild left-sided foraminal narrowing L3-4: There is a circumferential disc bulge with mild to moderate spinal steno sis. There is moderate to severe left-sided foraminal narrowing L4-5: There is a circumferential disc bulge with moderate spinal stenosis. There is moderate to severe left-sided foraminal narrowing L5-S1: There is a mild circumferential disc bulge. There is no significant spinal or foraminal stenosis. The conus medullaris and cauda equina appear normal. IMPRESSION: 1. Significantly limited study from a technical standpoint secondary to motion artifact 2. No evidence of suspicious marrow replacement 3. Multilevel spondylytic changes with mild spinal stenosis the L1-2 level, mild to moderate spinal stenosis at the L2-3 and L3-4 levels, and moderate spinal stenosis at the L4-5 level. 4. Mild left-sided foraminal narrowing at the L2-3 level, moderate to severe left-sided foraminal narrowing at the L3-4 and L4-5 levels. ACT 112: Negative or not required by law. Electronically signed by: Fahad Rahman M.D. 02/09/2021 8:03 AM Dictated: 02/09/21 [id number]: 02/09/21 [id number]
[2021-02-09 13:33] LABS: BUN Creatinine Ratio 18.3 (10-20); Calcium 8.7 mg/dl (8.5-10.1); Creatinine Clr Calc Pharmacy 75.7 ml/min; Est GFR (Non-African American) 89.8; Potassium 3.8 mmol/L (3.5-5.1)
[2021-02-09] MEDS: PANTOprazole 40 MG TAB PO SCH (13:40)
[2021-02-09] MEDS: MONTELUKAST SODIUM 10 MG TABLET PO SCH (13:41)
[2021-02-09] MEDS: hydrOXYzine HCl 10 MG TAB PO SCH (20:35)
[2021-02-10] MEDS: ACETAMINOPHEN 325 MG TAB PO PRN (00:35)
[2021-02-10] MEDS: oxyCODONE HCL IR 5 MG TAB (IMMEDIATE RELEASE) PO PRN ×2 (01:26→09:06)
[2021-02-10 07:47] LABS: Albumin Level 3.3 gm/dl (3.4-5.0); BUN Creatinine Ratio 18.7 (10-20); Calcium 9.2 mg/dl (8.5-10.1); Est GFR (African American) 110.8; Est GFR (Non-African American) 95.6
[2021-02-10 07:50] LABS: Albumin Globulin Ratio 0.8 (0.9-2); Bilirubin,Total 0.6 mg/dl (0.2-1); Total Protein 7.3 gm/dl (6.4-8.2)
--- NOTE | 2021-02-10 08:38 | Pain Management Consultation ---
Date of Consultation February 10, 2021 Assessment & Plan (1) Lumbar radiculopathy: * Patient will be tentatively scheduled for a left paramedian L4-5 interlaminar epidural steroid injection in the office on 02/14 at 9:15. She will be provided with preop instructions. * In the meantime she will alternate Ibuprofen and Oxycodone for pain relief. * Patient does express interest on discharge to home today. She does feel comfortable returning home. History of Present Illness Attending Physician: Chantelle Stock MD History of Present Illness This is a 60-year-old female that has been experiencing left leg pain for the past 10 days without any known injury. She describes a deep aching, burning pain along the left lateral hip, anterior thigh, down to the champagne. Pain is aggravated with weightbearing, walking. Sitting and lying supine does provide moderate pain relief. She did previously tried Tylenol, ibuprofen, and prednisone with little relief. She is reporting significant limitation to performing her daily activities due to the pain. Pain is rated 2/10 at its best and 8/10 at its worst. She denies any lumbar pain. Patient has been utilizing oxycodone since admission with moderate pain relief. Patient denies any bowel/bladder continence, saddle anesthesia, foot drop, falls. Case discussed with Dr. Candis Werner Allergies Allergy/AdvReac Type Severity Reaction Status Date / Time No Known Allergies Allergy Unverified 02/07/21 12:18 Home Medications Medication Instructions Recorded Confirmed Type acetaminophen [Tylenol Extra 500 mg PO Q6H PRN 02/07/21 02/07/21 History Strength] albuterol sulfate [Ventolin HFA] 2 puff INHALATION QID PRN 02/07/21 02/07/21 History aspirin 81 mg PO Q2D 02/07/21 02/07/21 History buspirone 15 mg PO BID 02/07/21 02/07/21 History hydroxyzine HCl 20 mg PO HS 02/07/21 02/07/21 History montelukast 10 mg PO DAILY@1400 02/07/21 02/07/21 History pantoprazole 40 mg PO DAILY@1400 02/07/21 02/07/21 History prednisone 20 mg PO BID 02/07/21 02/07/21 History trazodone 50 mg PO HS PRN 02/07/21 02/07/21 History valsartan-hydrochlorothiazide 1 tab PO DAILY@1400 02/07/21 02/07/21 History Patient History Medical History Allergic rhinitis Esophageal reflux HTN (hypertension) Hyperlipidemia Sinusitis Smoker Surgical History S/P colonoscopy Family History Father Coronary heart disease Social History Smoking Status: Current every day smoker Cigarettes Per Day: 20-40; Second Hand Exposure: Yes; Hx Alcohol Use: Yes Alcohol type: beer Hx Substance Use: No Preferred Language: Arabic Communication Ability: Effective [employer] Dean Required: No Beliefs That Will Affect Care: None Current Living Situation: Alone Feels Safe at Home: Yes Assistive Devices: Cane and Glasses Physical Exam Physical Exam: GENERAL: This is a 60 year old female that does not appear in any acute distress. HEAD/FACE: Normocephalic and atraumatic. EYES: No drainage or conjunctival injection. ENT: Nose without bleeding or discharge. Oral mucosa moist. NECK: Full ROM without apparent pain. No swelling or masses noted. CHEST/AXILLA: Chest movement symmetrical. No deformities noted. BACK: Moves without difficulty. No midline, facet joint, or SI joint tenderness. No muscle spasm or trigger points noted. SKIN: [place], warm and dry. No rash noted. MS/EXTREMITY: Full ROM of the left hip. Mild tenderness of the left trochanteric bursa. Positive straight leg raise on the left, negative on the right. 5/5 strength of the lower extremities. NEURO: Alert and appears oriented. Speech is fluent. Cranial Nerves are grossly intact. PSYCH: Alert, pleasant, affect is calm Results ([facility]) Diagnostic Review MRI Findings: MR lumbar spine wo con CLINICAL HISTORY: Back pain with left leg radiculopathy TECHNIQUE: Sagittal and axial T1, T2 and STIR images were obtained. COMPARISON STUDY: CT scan dated 02/07/2021 OBSERVATIONS: The study was ordered without and with contrast. The patient was in too much pain to complete the postcontrast images. The study is significantly degraded due to motion artifact The vertebral bodies and posterior elements appear intact. There is no abnormal bony signal present to suggest a marrow replacement process. L1-2: There is a circumferential disc bulge. There is mild spinal canal narrowing. There is no significant foraminal narrowing L2-3: There is a circumferential disc bulge with mild to moderate spinal stenosis. There is mild left-sided foraminal narrowing L3-4: There is a circumferential disc bulge with mild to moderate spinal stenosis. There is moderate to severe left-sided foraminal narrowing L4-5: There is a circumferential disc bulge with moderate spinal stenosis. There is moderate to severe left-sided foraminal narrowing L5-S1: There is a mild circumferential disc bulge. There is no significant spinal or foraminal stenosis. The conus medullaris and cauda equina appear normal. IMPRESSION: 1. Significantly limited study from a technical standpoint secondary to motion artifact 2. No evidence of suspicious marrow replacement 3. Multilevel spondylytic changes with mild spinal stenosis the L1-2 level, mild to moderate spinal stenosis at the L2-3 and L3-4 levels, and moderate spinal stenosis at the L4-5 level. 4. Mild left-sided foraminal narrowing at the L2-3 level, moderate to severe left-sided foraminal narrowing at the L3-4 and L4-5 levels. ACT 112: Negative or not required by law. Electronically signed by: Fahad Rahman M.D. 02/09/2021 8:[address] Findings: CT lumbar spine wo con CT DOSE: CLINICAL HISTORY: Left-sided lower abdominal pain, down leg TECHNIQUE: Helical images were acquired in transverse plane. Reformatted sagittal and coronal images were reviewed. A dose lowering technique was utilized adhering to the principles of ALARA. CONTRAST: No contrast was administered COMPARISON STUDY: None. FINDINGS: L1-2 level: There is prominence of the paravertebral soft tissues which is likely secondary to a disc bulge. There is no significant spinal or foraminal stenosis. L2-3 level: There is a circumferential disc bulge with moderate spinal stenosis. There is no significant foraminal narrow L3-4 level: There is a circumferential disc bulge with moderate spinal stenosis. There is mild left-sided foraminal narrowing L4-5 level: There is a circumferential disc bulge with moderate spinal stenosis. There is mild bilateral foraminal narrowing L5-S1 level: There is a circumferential disc bulge. There is mild bilateral foraminal narrowing. There is minimal spinal canal narrowing. No fractures subluxations or destructive lesions are visualized IMPRESSION: Multilevel spondylytic changes with moderate multifactorial spinal stenosis at the L2-3, L3-4, and L4-5 levels. ACT 112: Negative or not required by law. Electronically signed by: Fahad Rahman M.D. 02/07/2021 1:40 PM
[2021-02-10] MEDS: THIAMINE HCL 100 MG TAB PO SCH (09:08)
[2021-02-10] MEDS: FOLIC ACID 1 MG TAB PO SCH (09:08)
[2021-02-10] MEDS: busPIRone 15 MG TAB PO SCH (09:11)
[2021-02-10] MEDS: ENOXAPARIN INJ 40 MG/0.4 ML SYR SQ SCH (09:11)
[2021-02-10] MEDS: ASPIRIN 81 MG ECTAB PO SCH (09:11)
[2021-02-10] MEDS: INSULIN ASPART 100 UNITS/ML 3 ML PEN SC SCH (09:11)
[2021-02-10] MEDS: SODIUM CHLORIDE 0.9% 1000ML 1,000 ML IV SCH (09:14)
--- NOTE | 2021-02-10 10:31 | Discharge Summary ---
Date of Service February 10, 2021 Admission HPI Per Admitting Provider 60 yo F smoker who reportedly drinks 3-4 beers daily presents with one week of severe left upper thigh pain, nontraumatic. 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 She lives in a camper in [facility] and reports no issues with her sleeping arrangements which may have contributed to her pain. She has no h/o back or leg pain in the past and denies any trauma or surgery to this area. She is reporting a crampy pain at night that is severe in the thigh and a sharp stabbing pain that radiates from the medial groin area down the thigh on the front. There is no back pain or radiculopathy. She does report numbness in her lateral toes on the left side for the past week. She reports that her mother suffered a similar pain and had an abdominal aneurysm requiring surgeries. ROS reveals 6 weeks of once daily loose stools in the morning. She reports this has stopped and she hasn't had a BM in one week. She reports severe nausea without vomiting last Sunday for which she said she was going to come into the ER but this resolved prior to coming. She has had some relief of pain with the morphine and relief of nausea today with meds in the ER. Sodium was found to be 119. The patient is a lifelong smoker and is unwilling to quit at this time becuase of failed previous attempts and some ongoing anxiety issu es. She otherwise denies chest pain, SOB, wheezing, fevers, chills, back pain, abdominal pain. She has a glucose of 296 but denies a h/o DMII. She was recently taking prednisone for back pain in the last week which wasn't much help in controlling the pain. Admission Exam Per Admitting Provider CONSTITUTIONAL: WNWD, vitals as above, mild distress with movement. Smells of cigarette smoke. EYES: PERRL, normal conjunctivae, no scleral icterus ENT: external ear and nose normal, oropharynx clear, partial dentures in place. MMM RESPIRATORY: clear to auscultation bilaterally, no crackles, rales or wheezes, normal respiratory effort CARDIOVASCULAR: regular rate and rhythm, S1 and 2 heard without murmurs, gallops or rubs, no JVD, no peripheral edema CHEST: inspection of chest was normal GASTROINTESTINAL: soft, mild TTP in LLQ, nondistended, no guarding. MUSCULOSKELETAL: strength 5/5 throughout except some difficulty with dorsiflexion of the left foot, gait not assessed 2/2 severe pain. head is normocephalic and atraumatic SKIN: warm and dry NEUROLOGIC: patellar DTRs 2+ bilat. No facial palsy, no dysarthria. Touch, pain and proprioception normal. CN 2-12 grossly intact, no sensory deficit, normal cognition, normal speech PSYCHIATRIC: alert cooperative and oriented to person, place and time. Principal Diagnosis Lumbar radiculopathy Hyponatremia Alcohol use Discharge Exam Constitutional + well hydrated; no acute distress Eyes PERRL, conjunctivae normal, anicteric sclerae ENMT external ear and nose normal, oropharynx normal Respiratory normal respiratory effort, lungs clear to auscultation Cardiovascular Rate/Rhythm: regular rate and regular rhythm Gastrointestinal (Abdomen) normal bowel sounds, soft, nontender, no hepatosplenomegaly Musculoskeletal no cyanosis or clubbing, extremities motor strength 5/5 +Straight leg raise Neurologic PERRL, EOMI, accommodation nl, no face palsy, no dysarthria Psychiatric A+Ox3, euthymic affect Discharge Data Allergies Allergy/AdvReac Type Severity Reaction Status Date / Time No Known Allergies Allergy Unverified 02/07/21 12:18 Consultations 02/07/21 14:41 ED Decision to Admit Stat 02/07/21 20:21 Consult Nephrology Routine 02/09/21 09:24 Consult Orthopedic Surgery Routine 02/09/21 13:20 Consult Pain Management Routine Ordered Studies 02/07/21 11:43 CT abd pelvis IV con only Stat Lower chest: There are mild dependent atelectatic changes Liver: The contrast-enhanced liver is normal in size, contour, and attenuation. There is no intrahepatic biliary ductal dilatation. The hepatic veins and portal veins are patent. Gallbladder: Unremarkable. Spleen: Normal in size and attenuation. Pancreas: Unremarkable. Adrenal glands: There is minor low density left adrenal gland thickening Kidneys: There is symmetric renal cortical enhancement. The kidneys are normal in size without hydronephrosis. Bowel: There are no transition zones to indicate bowel obstruction. There is no evidence of acute diverticulitis. There is no evidence of acute appendicitis. Peritoneum: There is no intraperitoneal free air or abdominal ascites. Vasculature: There is no evidence of abdominal aortic aneurysm. There are aortoiliac atheromatous changes. Adenopathy: None. Pelvic viscera: The uterus appears surgically absent Skeletal structures: No destructive lesions are visualized. Degenerative changes are present within the lumbar spine with lumbar spinal stenosis. IMPRESSION: 1. No acute intra-abdominal or pelvic findings 2. No evidence of bowel obstruction. No evidence of free air 3. No acute inflammatory changes 4. No evidence of pathologic adenopathy CT lumbar spine wo con Stat L1-2 level: There is prominence of the paravertebral soft tissues which is likely secondary to a disc bulge. There is no significant spinal or foraminal stenosis. L2-3 level: There is a circumferential disc bulge with moderate spinal stenosis. There is no significant foraminal narrow L3-4 level: There is a circumferential disc bulge with moderate spinal stenosis. There is mild left-sided foraminal narrowing L4-5 level: There is a circumferential disc bulge with moderate spinal stenosis. There is mild bilateral foraminal narrowing L5-S1 level: There is a circumferential disc bulge. There is mild bilateral foraminal narrowing. There is minimal spinal canal narrowing. No fractures subluxations or destructive lesions are visualized IMPRESSION: Multilevel spondylytic changes with moderate multifactorial spinal stenosis at the L2-3, L3-4, and L4-5 levels. 02/08/21 12:54 MR lumbar spine wo con Routine The study was ordered without and with contrast. The patient was in too much pain to complete the postcontrast images. The study is significantly degraded due to motion artifact The vertebral bodies and posterior elements appear intact. There is no abnormal bony signal present to suggest a marrow replacement process. L1-2: There is a circumferential disc bulge. There is mild spinal canal narrowing. There is no significant foraminal narrowing L2-3: There is a circumferential disc bulge with mild to moderate spinal stenosis. There is mild left-sided foraminal narrowing L3-4: There is a circumferential disc bulge with mild to moderate spinal stenosis. There is moderate to severe left-sided foraminal narrowing L4-5: There is a circumferential disc bulge with moderate spinal stenosis. There is moderate to severe left-sided foraminal narrowing L5-S1: There is a mild circumferential disc bulge. There is no significant spinal or foraminal stenosis. The conus medullaris and cauda equina appear normal. IMPRESSION: 1. Significantly limited study from a technical standpoint secondary to motion artifact 2. No evidence of suspicious marrow replacement 3. Multilevel spondylytic changes with mild spinal stenosis the L1-2 level, mild to moderate spinal stenosis at the L2-3 and L3-4 levels, and moderate spinal stenosis at the L4-5 level. 4. Mild left-sided foraminal narrowing at the L2-3 level, moderate to severe left-sided foraminal narrowing at the L3-4 and L4-5 levels. Hospital Course (1) Lumbar radiculopathy: (2) Leg pain: Patient reports she has been having left hip pain radiating to the left anterior thigh for the past 1 week. Denied trauma. Pain reported to be initially sharp and now crampy radiating to left thigh and lower leg. Denies any recent trauma. No fractures noted on imaging Lumbar spine MRI, 2 significantly limited, showed multilevel spondylitic changes with mild to moderate spinal stenosis at L2-3 and L3-4 and moderate spinal stenosis at L4-5, mild left-sided foraminal narrowing at L2-3, moderate to severe left-sided foraminal narrowing at L3-4 and L4-5 Was evaluated by orthopedic surgeon and pain management Patient wants medical management for now. Pain control with oxycodone and lidocaine patch To follow-up with pain management on Sunday for possible injection and advised to follow-up with Ortho in 1 to 2 weeks Was evaluated by PT/OT and discharged with rolling walker (3) Hyponatremia: Multifactorial in nature in the setting of hydrochlorothiazide use, beer potomania or possibly volumue depletion. Was evaluated by linoleum floor layer Hydrochlorothiazide discontinued and should not be resumed even on discharge Patient valsartan was increased to 320mg daily Hypokalemia - repleted (4) HTN (hypertension): Patient valsartan-hydrochlorothiazide combination was discontinued Was started on increased dose of valsartan at 320 mg daily PCP to continue monitoring and manage hypertension-accordingly (5) Smoker: Active smoker. Patient reports smoking 1.5 packs/day for 50 years. Counseled extensively regarding smoking cessation. (6) Alcohol use: Patient drinks 3-5 beers daily. Counseled extensively about alcohol use (7) Hyperglycemia: She denies a h/o diabetes although has a glucose of 296 in the ER. She was notably on prednisone recently. Hemoglobin A1c is 5.6 Total Time Total Time Spent Total Time Spent (In Minutes): 50 Total Time Includes: Examination of the Patient, Discharge Planning, Medication Reconciliation and Communication With Other Providers Discharge Plan Discharge Items Patient Disposition: Home - Self-Care Reason For Visit: ACUTE HYPONATREMIA, LEG PAIN Discharge Diagnosis: Lumbar radiculopathy Hyponatremia Activity: As commented below Activity Comment: As instructed by physical therapist. Will rolling walker Non-emergency contact: Primary Care Provider and Surgeon Call non-emergency contact if: you have any medication questions and your symptoms worsen Follow-up/Referrals: Mechelle Dumas PA-C [Physician Legal Billing Analyst] - 02/14/21 9:15 am Vero Turner DO [Primary Care Provider] - (Date & Time 02/15/2021 10:20 AM Provider Emilie Leonard MD Department [facility] ) Diet: Heart Healthy Addtl Attending Provider Instructions: Ms [place]. You came to the hospital complaining of right thigh pain that radiates to your leg. You were evaluated and found to have low sodium levels (hyponatremia) and degenerative changes in your spine with narrowing. You were managed with medical treatment. Your sodium level improved. It is very important that you stop drinking alcohol and smoking as we discussed. Your home blood pressure medication was changed from valsartan- hydrochlorothiazide to valsartan with your valsartan at increased dose. Please follow up with your Primary Doctor for continued management. You were evaluated by the orthopedic surgeon and you opted for medical management for now. It is very important that you follow up with pain management for continued management. Please follow up with orthopedic surgeon in office ([phone]) in 1-2 weeks. You can follow up earlier if worsening symptoms. It was a pleasure taking care of you. Pending Studies at Discharge: No Stand-Alone Forms: My [employer], Smoking Cessation Medications and DC Order Prescriptions: New valsartan 320 mg tablet 320 mg PO DAILY Qty: 30 RF: 0 oxycodone 5 mg Tablet 5 mg PO TID PRN (Reason: pain) Qty: 9 RF: 0 lidocaine 5 % Adhesive Patch,Medicated 1 patch transdermal QAM Qty: 30 RF: 0 thiamine HCl (vitamin B1) [Vitamin B-1] 100 mg Tablet 100 mg PO QAM Qty: 30 RF: 0 folic acid 1 mg Tablet 1 mg PO QAM Qty: 30 RF: 0 Continued trazodone 50 mg Tablet 50 mg PO HS PRN (Reason: Sleep) RF: 0 aspirin 81 mg Tablet,Delayed Release (Dr/Ec) 81 mg PO Q2D RF: 0 acetaminophen [Tylenol Extra Strength] 500 mg Tablet 500 mg PO Q6H PRN (Reason: Pain) RF: 0 pantoprazole 40 mg tablet,delayed release (DR/EC) 40 mg PO DAILY@1400 RF: 0 montelukast 10 mg tablet 10 mg PO DAILY@1400 RF: 0 albuterol sulfate [Ventolin HFA] 90 mcg/actuation HFA aerosol inhaler 2 puff INHALATION QID PRN (Reason: Shortness Of Breath) RF: 0 hydroxyzine HCl 10 mg tablet 20 mg PO HS RF: 0 buspirone 15 mg tablet 15 mg PO BID RF: 0 Discontinued prednisone 20 mg tablet 20 mg PO BID RF: 0 valsartan-hydrochlorothiazide 160-25 mg tablet 1 tab PO DAILY@1400 RF: 0 Discharge Orders: Discharge Order (Routine); Ordered 02/10/21 Ordered By: Chantelle Stock Admission Data Admit Date/Time: 02/07/21 15:33 Attending Provider: Chantelle Stock I. Admit Provider: Nancy Perez Primary Care Provider: Vero Turner Other Providers: Jairo Barnard ; Nancy Perez ; Jolanta Landaverde ; Yohan Smith ; Stefano Figueroa ; Candis Werner ; Carlos Green ; Mechelle Dumas ; [facility] Other Interventions: Discharge Summary Assessment (RN) Last Done: 02/10/21 10:56
--- NOTE | 2021-02-10 10:40 | Nephrology Progress Note ---
Date of Service February 10, 2021 Assessment & Plan Admission and Anticipated Discharge Date Admission Date: February 07, 2021 Subjective SUBJECTIVE: Overnight, no new issues. Blood pressure is starting to run high. Serum sodium is improving, but still low. OBJECTIVE: HEENT: Mucous membranes moist. NECK: Supple. No jugular venous distention. CHEST: Bilaterally clear to auscultation. CARDIOVASCULAR: S1, S2 regular. ABDOMEN: Soft, nontender. EXTREMITIES: Show no edema. LABORATORY TEST: reviewed. ASSESSMENT AND PLAN: A 60-year-old female admitted with severe hyponatremia in the setting of severe leg pain and nausea of a few days' duration. Hyponatremia: This is multifactorial in etiology including hydrochlorothiazide, volume depletion as well as some component of syndrome of inappropriate antidiuretic hormone secretion as well as excessive beer drinking. RECOMMENDATIONS: 1. STOP HYDROCHLOROTHIAZIDE FOREVER AND LIST ALLERGY. 2. Increase valsartan dose to 320 daily. 3. Ok to Discharge. needs f/u with PCP with BMP next week. Also nephrology. Results & Data ([facility]) Vital Signs (Past 12 Hours) Vital Signs Temp Pulse Pulse Resp BP Pulse Ox 02/10/21 07:43 66 02/10/21 07:40 36.6 C 74 17 178/96 H 98 02/10/21 03:41 36.6 C 69 18 190/92 H 95 02/10/21 01:53 77 02/09/21 23:51 36.7 C 75 18 170/77 H 96
[2021-02-10 17:46] LABS: Codeine Urine NEGATIVE ng/mL (<50); Hydrocodone Urine NEGATIVE ng/mL (<50); Hydromor Urine NEGATIVE ng/mL (<50); Morphine Urine 3550 ng/mL (<50); Norhydrocodone Conf Ur NEGATIVE ng/mL (<50); Noroxycodone Urine NEGATIVE ng/mL (<50); Oxycodone Urine NEGATIVE ng/mL (<50); Oxymorph Urine NEGATIVE ng/mL (<50)
--- NOTE | 2021-02-15 16:35 | Coding Query ---
CODING QUERY To promote full compliance with coding requirements relating to patient care, provider participation is requested in all cases of phone technician uncertainty. Please assist us with the question(s) below: Coding Question(s): Hyponatremia is documented in the record with Nephrology Consultation and Nephrology Progress Notes documenting, "Hyponatremia: This is multifactorial in etiology including hydrochlorothiazide, volume depletion as well as some component of syndrome of inappropriate antidiuretic hormone secretion as well as excessive beer drinking" and attending and Discharge Summary documenting, "Hyponatremia: Multifactorial in nature in the setting of hydrochlorothiazide use, beer potomania or possibly volumue depletion", with no documentation of component of syndrome of inappropriate antidiuretic hormone secretion. Please specify below, in your clinical opinion, regarding component of syndrome of inappropriate antidiuretic hormone secretion. ( x ) Hyponatremia Multifactorial including component of syndrome of inappropriate antidiuretic hormone secretion ( ) Hyponatremia Multifactorial NOT including component of syndrome of inappropriate antidiuretic hormone secretion, it is ruled-out ( ) Other: Please Specify Physician's Response(s): Thank you Yamile Gomes Principal Diagnosis: "that condition established after study, to be chiefly responsible for occasioning the admission of the patient to the hospital for care." Co-Existing Principal Diagnosis: "when two or more diagnoses equally meet the criteria for principal diagnosis as determined by the circumstances of admission, diagnostic work up, and/or therapy provided, and the Alphabetic Index, Tabular List, or another coding guideline does not provide sequencing direction, any one of the diagnoses may be sequenced first." "When the physician has documented what appears to be a current diagnosis in the body of the record, but has not included the diagnosis in the final diagnostic statement, the physician should be asked whether the diagnosis should be added." (Source [facility]oding [facility] 2 QTR90. p3-4) ELDON
== END 2021-02-10 12:32 | disposition home health service (06) | DRG 644 ==
LOC: ED 11:14 → 2N 15:33 → SUATTDRO 15:33 → INTOOBSV 15:33 → 2N 16:46